=== PATIENT | male | born 1990 | race Two or more races ===

== ENCOUNTER 2022-07-12 09:22 | Outpatient (REF) | payer OTHER, SELFPAY ==
[2022-07-12 10:39] LABS: Hematocrit 43.9 % (42.0-52.0); Hemoglobin 14.4 g/dl (14.0-18.0); Mean Corpuscular HGB Conc 32.8 g/dl (31.0-36.0); Mean Corpuscular Hemoglobin 30.8 pg (27.0-33.0); Mean Corpuscular Volume 93.8 fL (80.0-98.0); Mean Platelet Volume 10.9 fL (9.4-12.4); Platelet Count 278 X10*3/uL (160-400); Red Blood Count 4.68 X10*6/uL (4.60-5.80); Red Cell Distribution Width 11.7 % (11.0-16.0); White Blood Count 4.7 X10*3/uL (4.8-10.8)
[2022-07-12 12:23] LABS: Alanine Aminotransferase 20 U/L (0-40); Albumin Level 4.4 g/dL (3.5-5.0); Alkaline Phosphatase 61 U/L (39-117); Anion Gap 15 (12-20); Aspartate Amino Transferase 21 U/L (5-37); Bilirubin Total 0.9 mg/dL (0.0-1.0); Blood Urea Nitrogen 21 mg/dL (9-16); Calcium 9.4 mg/dL (8.4-10.2); Carbon Dioxide 26 mmol/L (22-29); Chloride 106 mmol/L (96-108); Cholesterol 191 mg/dL; Estimated Glomerular Filt Rate > 60; Glucose Fasting 87 mg/dL (60-99); HDL Cholesterol 80 mg/dL; LDL Cholesterol Calculated 103 mg/dl; Potassium 5.3 mmol/L (3.3-5.1); Sodium 142 mmol/L (135-145); Total Protein 7.4 g/dL (6.5-8.0); Triglycerides 42 mg/dL
[2022-07-12 12:50] LABS: TSH reflex Free T4 0.76 uIU/mL (0.32-4.0)
== END 2022-07-12 09:23 | disposition home or self-care (01) ==
LOC: HO.LAB 09:22
PROVIDERS: Visit Provider Hospitalist
DX: Z00.00 Encounter for general adult medical examination without abnormal findings (principal); Z13.220 Encounter for screening for lipoid disorders; Z13.29 Encounter for screening for other suspected endocrine disorder
CPT/HCPCS: 36415; 80053; 80061; 84443; 85027

== ENCOUNTER 2022-07-19 09:00 | Outpatient (REF) | payer OTHER, SELFPAY ==
[2022-07-19 09:56] LABS: Anion Gap 15 (12-20); Blood Urea Nitrogen 25 mg/dL (9-16); Calcium 10.1 mg/dL (8.4-10.2); Carbon Dioxide 29 mmol/L (22-29); Chloride 103 mmol/L (96-108); Estimated Glomerular Filt Rate > 60; Glucose Random 92 mg/dL (60-115); Sodium 142 mmol/L (135-145)
== END 2022-07-19 09:01 | disposition home or self-care (01) ==
LOC: HO.LAB 09:00
PROVIDERS: PCP Hospitalist; Visit Provider Hospitalist
DX: E87.5 Hyperkalemia (principal)
CPT/HCPCS: 36415; 80048

== ENCOUNTER 2022-11-21 21:20 | Emergency (ER) | payer OTHER, SELFPAY ==
--- NOTE | ~2022-11-21 | XR_ITS ---
EXAMINATION: XR CHEST CLINICAL INFORMATION: Chest pain COMPARISON: None TECHNIQUE: 2 views of the chest were obtained. FINDINGS: No significant abnormality is noted involving the heart, lungs, mediastinum, bony thorax or soft tissues. XR/XR chest 2V IMPRESSION: Unremarkable examination.
[2022-11-21 21:28] VITALS: BP 144/86; PULSE 65; RESP 20; TEMP 36.6; O2SAT 98; BMI 24.0
--- NOTE | 2022-11-21 22:35 | ECG_ITS ---
Test Reason : NECK PAIN Blood Pressure : / mmHG Vent. Rate : 058 BPM Atrial Rate : 058 BPM P-R Int : 130 ms QRS Dur : 086 ms QT Int : 382 ms P-R-T Axes : 046 073 043 degrees QTc Int : [address] elevation, consider early repolarization Borderline ECG No previous ECGs available Referred By: Mehnaz Garcia Electronically Signed By:Roni Salazar
[2022-11-21 23:24] LABS: Basophils Percent Auto 0.4 % (0-2); Eosinophils Absolute Auto 0.3 X10*3/uL (0.0-0.4); Hematocrit 41.1 % (42.0-52.0); Hemoglobin 13.4 g/dl (14.0-18.0); Imm Gran Abs Auto 0.01 X10*3/uL (0.00-0.03); Imm Gran Pct Auto 0.2 % (0.0-0.4); Lymphocytes Absolute Auto 1.7 X10*3/uL (1.2-4.9); Lymphocytes Percent Auto 35.2 % (20-40); Mean Corpuscular HGB Conc 32.6 g/dl (31.0-36.0); Mean Corpuscular Hemoglobin 30.1 pg (27.0-33.0); Mean Corpuscular Volume 92.4 fL (80.0-98.0); Mean Platelet Volume 10.4 fL (9.4-12.4); Monocytes Percent Auto 20.2 % (2-11); Neutrophils Absolute Auto 1.7 x10*3/uL (2.0-8.3); Platelet Count 216 X10*3/uL (160-400); Red Blood Count 4.45 X10*6/uL (4.60-5.80); Red Cell Distribution Width 11.3 % (11.0-16.0); SCAN SMEAR FLAG 1; White Blood Count 4.7 X10*3/uL (4.8-10.8)
[2022-11-21 23:28] LABS: MANUAL DIFF FLAG SCAN
[2022-11-21 23:31] LABS: COVID-19 Test Positive (Negative); IDNOW Serial# BCCEAD1C
[2022-11-21 23:42] LABS: SLIDE REVIEW VERIFIED
[2022-11-21 23:46] LABS: Anion Gap 11 (12-20); Blood Urea Nitrogen 17 mg/dL (9-16); Calcium 9.1 mg/dL (8.4-10.2); Carbon Dioxide 30 mmol/L (22-29); Chloride 103 mmol/L (96-108); Creatinine Clr Calc Pharmacy 116.5; Estimated Glomerular Filt Rate > 60; Glucose Random 97 mg/dL (60-115); Potassium 4.4 mmol/L (3.3-5.1); Sodium 140 mmol/L (135-145)
[2022-11-22 00:15] VITALS: BP 124/72; PULSE 52; RESP 16; TEMP 36.6; O2SAT 99
--- NOTE | 2022-11-22 00:31 | ED.GENADULT ---
HPI - General Adult General Chief complaint: General Medical Stated complaint: tested covid +, arm pain going into neck Time Seen by Provider: 11/21/22 21:40 Source: patient Mode of arrival: ambulatory Limitations: no limitations History of Present Illness HPI narrative: The patient comes to the emergency room complaining of left-sided arm numbness radiating up towards the neck. Patient was diagnosed with COVID 2 days ago. Patient denies chest pain or shortness of breath. Related Data Home Medications Medication Instructions Recorded Confirmed albuterol sulfate 90 mcg/actuation 2 puff inhalation Q4-6H PRN 07/09/22 aerosol inhaler Allergies Allergy/AdvReac Type Severity Reaction Status Date / Time aspirin Allergy Mild Blurry Verified 11/21/22 21:31 Vision Review of Systems Review of Systems: Constitutional : No Weight loss, No Fever, No Chills, No Night Sweats, No Fatigue, No Malaise ENT/Mouth : No Hearing loss, No Ear Pain, No Nasal Congestion, No Sinus Pain, No Hoarseness, No sore throat, No Rhinorrhea, No Swallowing Difficulty Eyes: No Eye Pain, No Swelling, No Redness, No Foreign Body, No Discharge, No Vision Changes Cardiovascular : No Chest Pain, No SOB, No Dyspnea on Exertion, No Orthopnea, No Edema, No Palpitations Respiratory : No Cough, No Sputum, No Wheezing, No Smoke Exposure, No Dyspnea Gastrointestinal : No Nausea, No Vomiting, No Diarrhea, No Constipation, No abdominal Pain, No Hematochezia, No Melena Genitourinary : no irregular bleeding, No Dysuria, No Urinary Frequency, No Hematuria, No Urinary Incontinence, No Urgency, No Flank Pain, No Urinary Flow Changes, No Hesitancy Musculoskeletal : No joint pain, No Myalgias, No Joint Swelling Skin : No Skin Lesions, No rash Neuro : No Weakness, complaining of paresthesias in certain spots on the left arm, intermittent, at different places. Psych : No Anxiety/Panic, No Depression, No SI/HI/AH/VH, No Social Issues, Heme/Lymph: No Bruising, No Bleeding,No Lymphadenopathy Endocrine : No Polyuria, No Polydipsia, No Temperature Intolerance PMFSH Past Medical History Medical History Asthma Family History Family History (Updated 07/09/22 @ 09:01 by MAR Garg) Maternal Grandmother Diabetes Father High blood pressure Lymph node cancer Social History Social History Housing: Apartment Patient Tobacco Use Status: Never used Tobacco e-Cigarette/Vaping Use: Never Used Advance Directives: No Advance Directives Information Provided: Yes Current occupational status: employed Current occupation: teacher Current occupational exposures/hazards: No Cognitive needs: No Hearing needs: No Vision needs: No Physical Exam ED Vital Signs: Vital Signs - 24 hr 11/21/22 21:28 11/22/22 00:15 Temperature 98 F 98 F Pulse Rate 65 52 Respiratory Rate 20 16 Blood Pressure 144/86 H 124/72 Pulse Oximetry 98 99 Oxygen Delivery Method Room Air Room Air BMI result Body Mass Index 24.0 Const Other: Appearance: Alert. Oriented X3. No acute distress. Eyes: Pupils equal, round and reactive to light. ENT: Pharynx normal. Neck: Normal inspection. Neck supple. No lymph nodes noted. No crepitus CVS: Normal heart rate and rhythm. Pulses normal. Normal S1 and S2 Respiratory: No respiratory distress. Breath sounds normal. No Wheezing. No rales Abdomen: Soft and nontender. No rigidity. No distention. Skin: Skin warm and dry. Normal skin color. Normal skin turgor. Extremities: No lower extremity edema. No Lacerations. No Rash Neuro: Oriented X 3. No motor deficit. No sensory deficit. Moving all extremities. No slurred speech. CN 2 through 12 grossly intact Psych: calm, cooperative, normal affect Course Course Course Narrative: All of patient's labs are pending. Troponin pending. Our troponin analyzer will be done for an hour and delay disposition. Sign-out given to Dr. Acuña Medical Decision Making Lab Data Result Diagrams: 11/21/22 23:18 11/21/22 23:18 Labs: Lab Results 11/21/22 11/21/22 11/21/22 Range/Units 23:18 23:18 23:18 WBC 4.7 L (4.8-10.8) X10*3/uL RBC 4.45 L (4.60-5.80) X10*6/uL Hgb 13.4 L (14.0-18.0) g/dl Hct 41.1 L (42.0-52.0) % MCV 92.4 (80.0-98.0) fL MCH 30.1 (27.0-33.0) pg MCHC 32.6 (31.0-36.0) g/dl RDW 11.3 (11.0-16.0) % Plt Count 216 (160-400) X10*3/uL MPV 10.4 (9.4-12.4) fL Immature Gran % (Auto) 0.2 (0.0-0.4) % Neut % (Auto) 37.0 L (45-73) % Lymph % (Auto) 35.2 (20-40) % Piatt % (Auto) 20.2 H (2-11) % Eos % (Auto) 7.0 H (0-4) % Baso % (Auto) 0.4 (0-2) % Lymph # (Auto) 1.7 (1.2-4.9) X10*3/uL Piatt # (Auto) 1.0 (0.1-1.2) X10*3/uL Eos # (Auto) 0.3 (0.0-0.4) X10*3/uL Baso # (Auto) 0.0 (0.0-0.2) X10*3/uL Abs Immat Gran (auto) 0.01 (0.00-0.03) X10*3/uL Absolute Neuts (auto) 1.7 L (2.0-8.3) x10*3/uL Absolute Nucleated RBC 0.000 (0.0-0.012) X10*3/uL Nucleated RBC % (auto) 0.0 (0.0-0.2) /100WBC Smear Tech's Comments VERIFIED Sodium 140 (135-145) mmol/L Potassium 4.4 (3.3-5.1) mmol/L Chloride 103 (96-108) mmol/L Carbon Dioxide 30 H (22-29) mmol/L Anion Gap 11 L (12-20) BUN 17 H (9-16) mg/dL Creatinine 0.88 (0.5-1.4) mg/dL Estim Creat Clear Calc 116.5 Estimated GFR > 60 Random Glucose 97 (60-115) mg/dL Calcium 9.1 D (8.4-10.2) mg/dL COVID-19 ([facility]) Positive A (Negative) COVID-19 Clin Com See Note Discharge Plan Discharge Clinical Impression: COVID-19, Arm paresthesia, left Patient Disposition: Home, Self-Care Instructions: Paresthesia (ED), COVID-19 (Coronavirus Disease 2019) (ED) Additional Instructions: Please follow-up with your primary care physician tomorrow. If you have any worsening or new symptoms, please return to the emergency room or call 911 Prescriptions: No Action albuterol sulfate 90 mcg/actuation HFA aerosol inhaler 2 puff inhalation Q4-6H PRN
[2022-11-22 01:27] LABS: Troponin-I High Sensitivity < 3.5 ng/L (<3.5-35.0)
== END 2022-11-22 02:01 | disposition home or self-care (01) ==
PROVIDERS: Emergency Provider Emergency Medicine
DX: U07.1 COVID-19 (principal); R20.2 Paresthesia of skin
CPT/HCPCS: 36415; 71046; 80048; 84484; 85025; 87635; 93005; 99283; 99284